=== PATIENT | female | born 1945 | race Caucasian/White ===

== ENCOUNTER → 2017-02-09 | Outpatient (CLI) | payer MEDICARE ==
[~2017-02-09] MED LIST: AMBIEN10 M1 PO; COLACE100 MG PO; COQ10-VIT E 101 EACH PO; CYCLOBENZAPRINE10 MG PO; DAYPRO600 M1 PO; DITROPAN XL5 MG PO; EFFEXOR-XR75 MG PO; IRON325 M1 PO; LASIX20 MG PO; LEVOTHYROXINE100 MC1 PO; LIPITOR80 MG PO; MULTIVITAMINS1 EAC5 PO; NEXIUM40 MG PO; REGLAN10 M1 PO; REXULTI3 MG PO; VISTARIL25 MG PO; VITAMIN B121000 MC1 PO; VITAMIN C1000 M5 PO; VYVANSE70 MG PO; ZYPREXA10 M1 PO
--- NOTE | ~2017-02-09 | ST ---
[place], [place] EXERCISE STRESS TEST REPORT NAME: CONCHITA STODDARD UNIT #: [id number] ROOM: DOCTOR: KLAUS MORRISSEY MD BIRTHDATE: [birth year] DOS: INDICATION: Chest pain. PROCEDURE: The patient was brought to the stress lab. Procedure was explained with risks, benefits and alternatives. Lexiscan was injected. The patient tolerated the procedure well. BLOOD PRESSURE RESPONSE: Resting blood pressure 118/68 with ending blood pressure of 120/60. ELECTROCARDIOGRAM INTERPRETATION: The resting electrogram showing normal sinus rhythm, heart rate of 88. Following the injection, there was no evidence of any significant ST or T-wave changes suggestive of myocardial ischemia. No arrhythmias were noted. SUMMARY: 1. Adequate Lexiscan stress test. 2. Negative Lexiscan stress test for stress induced myocardial ischemia. 3. No arrhythmias were noted. 4. Myoview results will be reported separately. KLAUS MORRISSEY MD CM:STRESS:EXERCISE STRESS TEST REPORT [id number] KLAUS MORRISSEY MD
== END | disposition home or self-care (01) ==
LOC: CARD 03:22
DX: R06.02 Shortness of breath (principal); R07.9 Chest pain, unspecified

== ENCOUNTER → 2017-03-02 | Outpatient (CLI) | payer MEDICARE | END | disposition home or self-care (01) | LOC: CARD 08:45 | DX: R06.02 Shortness of breath (principal); R06.09 Other forms of dyspnea ==

== ENCOUNTER 2019-09-25 22:41 | Emergency (ER) | payer MEDICARE ==
[~2019-09-25] VITALS: Ht 162.5 cm; Wt 68.0 kg
== END 2019-09-26 01:43 | disposition home or self-care (01) ==
LOC: ED 22:41
DX: S01.01XA Laceration without foreign body of scalp, initial encounter (principal); M19.90 Unspecified osteoarthritis, unspecified site; E78.00 Pure hypercholesterolemia, unspecified; K21.9 Gastro-esophageal reflux disease without esophagitis; F41.9 Anxiety disorder, unspecified; F32.9 Major depressive disorder, single episode, unspecified; Z91.040 Latex allergy status; Z91.041 Radiographic dye allergy status; Z88.8 Allergy status to other drugs, medicaments and biological substances; W10.9XXA Fall (on) (from) unspecified stairs and steps, initial encounter; Y93.89 Activity, other specified; Y92.89 Other specified places as the place of occurrence of the external cause; Y99.8 Other external cause status

== ENCOUNTER 2019-09-30 02:31 | Emergency (ER) | payer MEDICARE ==
[~2019-09-30] VITALS: Wt 72.6 kg
[2019-09-30 03:43] LABS: HEMATOCRIT 34.7 % (37.0-47.0); HEMOGLOBIN 11.1 g/dl (12.0-16.0); LYMPH # 1.2 10*3/uL (1.3-4.4); LYMPH % 15.4 % (27.0-41.0); MEAN CELL VOLUME 97.5 fl (81.0-99.0); MEAN CORPUSCULAR HGB 31.2 pg (27.0-31.0); MEAN PLATELET VOLUME 9.8 fl (9.6-12.3); MONO # 0.9 10*3/uL (0.1-1.0); MONO % 10.5 % (3.0-9.0); NEUT % 73.7 % (47.0-73.0); PLATELET COUNT AUTOMATED 203 10*3/uL (130-400); RED BLOOD COUNT 3.56 10*6/uL (4.10-5.10); RED CELL DISTRI WIDTH 12.8 % (0-14.5); WHITE BLOOD COUNT 8.1 10*3/uL (4.8-10.8)
[2019-09-30 03:57] LABS: ACT PARTIAL THROMBO TIME 31.6 SECONDS (20.0-32.1)
[2019-09-30 04:01] LABS: ALBUMIN 2.9 gm/dl (3.1-4.5); ALKALINE PHOSPHATASE 90 U/L (45-117); BUN 16 mg/dl (7-24); CHLORIDE 104 mmol/L (98-107); CKMB 1.1 ng/ml (0.5-3.6); CREATININE 0.84 mg/dL (0.55-1.02); POTASSIUM 3.6 mmol/L (3.5-5.1); SGOT/AST 22 IU/L (3-35); SGPT/ALT 30 U/L (12-78); SODIUM 136 mmol/L (136-145); TOTAL PROTEIN 6.6 gm/dL (6.4-8.2)
[2019-09-30 04:02] LABS: TROPONIN I < 0.015 ng/ml (<0.045)
== END 2019-09-30 05:18 | disposition short-term general hospital (02) ==
LOC: ED 02:31
PROVIDERS: Emergency Medicine
DX: R41.0 Disorientation, unspecified (principal); K44.9 Diaphragmatic hernia without obstruction or gangrene; R09.02 Hypoxemia; E78.00 Pure hypercholesterolemia, unspecified; K21.9 Gastro-esophageal reflux disease without esophagitis; F41.9 Anxiety disorder, unspecified; F32.9 Major depressive disorder, single episode, unspecified; M19.90 Unspecified osteoarthritis, unspecified site; Z88.8 Allergy status to other drugs, medicaments and biological substances; Z91.040 Latex allergy status; Z79.899 Other long term (current) drug therapy

== ENCOUNTER 2019-10-10 18:20 | Inpatient (IN) | payer MEDICARE ==
[2019-10-10] VITALS (9 sets, daily range): BP systolic 101–134; BP diastolic 20–98
[~2019-10-10] VITALS: Ht 165.1 cm; Wt 71.4 kg
--- NOTE | 2019-10-10 18:59 | NUR ---
PT SENT ME TO TALK WITH HER IN THE WAITING ROOM TO GET MORE INFORMATION ABOUT HER HEALTH. UPON TALKING TO HER HE INFORMED ME THAT THE PT FELL 2 WEEKS AGO DOWN THE BASEMENT STAIRS AND HIT HER HEAD ON THE CONCRETE. SHE CAME TO [facility], WAS SEEN AND SENT HOME. 2 DAYS LATER SHE FAINTED AND WAS BROUGHT BACK TO THE ER. WE THEN TRANSFERRED HER TO [facility] WHERE SHE SPENT A COUPLE OF DAYS BEFORE BEING SENT BACK HOME. SHE WAS ACTING FINE UP UNTIL THIS MORNING WHEN SHE STARTED TO BE WEAK AND CONFUSED, HAD SOB, AND DIARRHEA. WHEN SHE STOOD FROM THE TOILET SHE FAINTED AND THE SAID HE TOOK HER TO THE FLOOR. HE STATED THAT SHE HAD A FIXED GAZE AND WAS UNRESPONSIVE FOR ABOUT 30 SECONDS TO A MINUTE. HE THEN CALLED EMS.
[2019-10-10 19:21] LABS: BASO % 0.1 % (0.0-1.0); HEMATOCRIT 24.7 % (37.0-47.0); HEMOGLOBIN 7.5 g/dl (12.0-16.0); LYMPH # 1.4 10*3/uL (1.3-4.4); MEAN CELL VOLUME 99.2 fl (81.0-99.0); MEAN CORPUSCULAR HGB 30.1 pg (27.0-31.0); MEAN CORPUSCULAR HGB CONC 30.4 g/dl (33.0-37.0); MEAN PLATELET VOLUME 9.5 fl (9.6-12.3); MONO # 0.7 10*3/uL (0.1-1.0); MONO % 4.7 % (3.0-9.0); NEUT % 84.7 % (47.0-73.0); PLATELET COUNT AUTOMATED 472 10*3/uL (130-400); RED BLOOD COUNT 2.49 10*6/uL (4.10-5.10); RED CELL DISTRI WIDTH 14.9 % (0-14.5); WHITE BLOOD COUNT 14.2 10*3/uL (4.8-10.8)
[2019-10-10 19:32] LABS: ACT PARTIAL THROMBO TIME 23.6 SECONDS (20.0-32.1)
[2019-10-10 19:38] LABS: ALBUMIN 2.8 gm/dl (3.1-4.5); ALKALINE PHOSPHATASE 116 U/L (45-117); BUN 50 mg/dl (7-24); CHLORIDE 108 mmol/L (98-107); LIPASE 97 U/L (73-393); POTASSIUM 3.7 mmol/L (3.5-5.1); SGOT/AST 17 IU/L (3-35); SGPT/ALT 14 U/L (12-78); SODIUM 140 mmol/L (136-145); TOTAL PROTEIN 5.9 gm/dL (6.4-8.2)
[2019-10-10 19:40] LABS: TROPONIN I < 0.015 ng/ml (<0.045)
[2019-10-10 20:15] LABS: BACTERIA 1+; BILIRUBIN NEGATIVE (NEGATIVE); BLOOD NEGATIVE (NEGATIVE); CLARITY CLEAR (CLEAR); COLOR YELLOW (YELLOW); EPITHELIAL CELLS 16-20; GLUCOSE NEGATIVE (NEGATIVE); KETONE NEGATIVE (NEGATIVE); LEUKO ESTERASE 1+ (NEGATIVE); NITRITE NEGATIVE (NEGATIVE); SPECIFIC GRAVITY 1.015 (1.005-1.030); UROBILINOGEN 0.2 E.U./dl (0.2-1.0); WBC 16-20 wbc/hpf (0-5)
[2019-10-11] VITALS (10 sets, daily range): BP systolic 113–141; BP diastolic 47–90
--- NOTE | 2019-10-11 00:30 | NUR ---
A 73, admitted to , under the services of LYNETTE Conn DO with a diagnosis of NEAR SYNCOPAL EPISODE, CONFUSION. Chief complaint is SYNCOPE. Patient arrived via stretcher from ER. Monitor applied. Initial assessment completed. Vital signs taken and recorded. LYNETTE CONN DO notified of admission to the unit. Orders received. See assessment for past medical history, medications and allergies. Patient and/or family oriented to unit. [facility] 4TH FLOOR visitation policy reviewed. Clothing/patient valuable form completed. WILL GAYTAN
--- NOTE | 2019-10-11 00:45 | NUR ---
NOTIFIED DR. DANGELO OF PATIENTS HIGH HEART RATE, 120S AT REST, 140S-150S WITH EXERTION. PATIENT STATES SHE CAN FEEL HER HEART RACING AT TIMES. NO NEW ORDERS RECEIVED. WILL CONTINUE TO MONITOR.
--- NOTE | 2019-10-11 01:00 | NUR ---
DR. SAVAGE MADE AWARE THAT WE CAN NOT RECONCILE MEDS BECAUSE PATIENT IS UNSURE OF HER HOME MEDICATIONS.
--- NOTE | 2019-10-11 01:16 | NUR ---
PATIENTS FIRST UNIT COMPLETE. CBC ORDERED PER POLICY. WILL CONTINUE TO MONTIOR.
[2019-10-11 01:35] LABS: BASO % 0.1 % (0.0-1.0); HEMATOCRIT 25.3 % (37.0-47.0); HEMOGLOBIN 7.9 g/dl (12.0-16.0); LYMPH # 2.1 10*3/uL (1.3-4.4); LYMPH % 15.2 % (27.0-41.0); MEAN CELL VOLUME 99.6 fl (81.0-99.0); MEAN CORPUSCULAR HGB 31.1 pg (27.0-31.0); MEAN CORPUSCULAR HGB CONC 31.2 g/dl (33.0-37.0); MEAN PLATELET VOLUME 9.3 fl (9.6-12.3); MONO # 0.8 10*3/uL (0.1-1.0); MONO % 5.7 % (3.0-9.0); NEUT # 10.8 10*3/uL (2.3-7.9); NEUT % 78.5 % (47.0-73.0); PLATELET COUNT AUTOMATED 374 10*3/uL (130-400); RED BLOOD COUNT 2.54 10*6/uL (4.10-5.10); RED CELL DISTRI WIDTH 14.9 % (0-14.5); WHITE BLOOD COUNT 13.7 10*3/uL (4.8-10.8)
--- NOTE | 2019-10-11 01:45 | NUR ---
NOTIFIED DR. SAVAGE OF PATIENTS NEW HGB, 7.9 AFTER ONE UNIT. SEE NEW ORDERS.
--- NOTE | 2019-10-11 02:25 | NUR ---
PATIENT REQUESTING TYLENOL FOR COMPLAINTS OF A HEADACHE. RATES THE PAIN 09/08. WILL CONTINUE TO MONITOR.
[2019-10-11 06:11] LABS: BASO % 0.1 % (0.0-1.0); HEMATOCRIT 30.7 % (37.0-47.0); HEMOGLOBIN 9.7 g/dl (12.0-16.0); LYMPH # 2.8 10*3/uL (1.3-4.4); LYMPH % 20.7 % (27.0-41.0); MEAN CORPUSCULAR HGB 30.5 pg (27.0-31.0); MEAN CORPUSCULAR HGB CONC 31.6 g/dl (33.0-37.0); MEAN PLATELET VOLUME 9.5 fl (9.6-12.3); MONO # 0.7 10*3/uL (0.1-1.0); MONO % 5.2 % (3.0-9.0); NEUT # 9.8 10*3/uL (2.3-7.9); NEUT % 73.4 % (47.0-73.0); PLATELET COUNT AUTOMATED 395 10*3/uL (130-400); RED BLOOD COUNT 3.18 10*6/uL (4.10-5.10); RED CELL DISTRI WIDTH 14.6 % (0-14.5); WHITE BLOOD COUNT 13.4 10*3/uL (4.8-10.8)
[2019-10-11 06:15] LABS: MEAN CELL VOLUME 96.5 fl (81.0-99.0)
[2019-10-11 06:32] LABS: BUN 41 mg/dl (7-24); CHLORIDE 110 mmol/L (98-107); CHOLESTEROL 127 mg/dL (<200); CREATININE 0.59 mg/dL (0.55-1.02); PHOSPHOROUS 2.5 mg/dL (2.5-4.9); POTASSIUM 3.2 mmol/L (3.5-5.1); SODIUM 141 mmol/L (136-145); TRIGLYCERIDES 203 mg/dl (<150); VLDL CHOLESTEROL 41 mg/dL (6-40)
[2019-10-11 06:40] LABS: HDL CHOLESTEROL 28 mg/dl (40-60); LDL CHOLESTEROL 58 mg/dL (9-159); THYROID STIM HORMONE (HS) 0.741 uIU/ml (0.358-4.75)
[2019-10-11 07:08] LABS: VITAMIN D, 25-HYDROXY 47.6 ng/mL (30-100)
--- NOTE | 2019-10-11 09:14 | NUR ---
case management called patient's regarding discharge needs. left voicemail for to contact case management with any home needs
--- NOTE | 2019-10-11 09:44 | NUR ---
ZOFRAN GIVEN FOR C/O NAUSEA. WILL MONITOR.
--- NOTE | 2019-10-11 10:45 | NUR ---
KIM ALBERTS PER PT.
[2019-10-12] VITALS: BP 132/51
--- NOTE | 2019-10-12 03:46 | NUR ---
PATIENT SLEEPING, NO SIGNS OF DISTRESS. RESPIRATIONS EASY,NON LABORED. BED IN LOWEST POSITION. CALL LIGHT WITHIN REACH. WILL CONTINUE TO MONITOR.
[2019-10-12 05:54] LABS: BASO % 0.1 % (0.0-1.0); HEMOGLOBIN 8.3 g/dl (12.0-16.0); LYMPH # 2.4 10*3/uL (1.3-4.4); LYMPH % 25.2 % (27.0-41.0); MEAN CELL VOLUME 99.3 fl (81.0-99.0); MEAN CORPUSCULAR HGB 30.5 pg (27.0-31.0); MEAN CORPUSCULAR HGB CONC 30.7 g/dl (33.0-37.0); MEAN PLATELET VOLUME 9.2 fl (9.6-12.3); MONO # 0.6 10*3/uL (0.1-1.0); MONO % 5.9 % (3.0-9.0); NEUT # 6.4 10*3/uL (2.3-7.9); NEUT % 68.1 % (47.0-73.0); PLATELET COUNT AUTOMATED 344 10*3/uL (130-400); RED BLOOD COUNT 2.72 10*6/uL (4.10-5.10); RED CELL DISTRI WIDTH 15.8 % (0-14.5); WHITE BLOOD COUNT 9.4 10*3/uL (4.8-10.8)
[2019-10-12 06:24] LABS: ACT PARTIAL THROMBO TIME 23.3 SECONDS (20.0-32.1); CHLORIDE 113 mmol/L (98-107); CREATININE 0.55 mg/dL (0.55-1.02); POTASSIUM 3.6 mmol/L (3.5-5.1); SODIUM 143 mmol/L (136-145)
[2019-10-12 06:36] LABS: BUN 14 mg/dl (7-24)
--- NOTE | 2019-10-12 07:35 | NUR ---
DR GAINES IN TO SEE PATIENT
[2019-10-12 08:31] VITALS: BP 120/58
[2019-10-12] MEDS ORDERED: CYMBALTA30 MG PO (09:33)
[2019-10-12] MEDS ORDERED: PEPCID20 MG PO (09:37)
[2019-10-12] MEDS ORDERED: LIPITOR80 MG PO (09:38)
[2019-10-12] MEDS ORDERED: ATIVAN0.5 MG PO (09:38)
[2019-10-12] MEDS ORDERED: Synthroid,Lev100 MCG PO (09:39)
[2019-10-12] MEDS ORDERED: ZYPREXA10 M1 PO (09:40)
--- NOTE | 2019-10-12 09:45 | NUR ---
PT CALLED ON THE PHONE AND WE WENT OVER HOME MEDICATIONS AND UPDATED THE COMPUTER
--- NOTE | 2019-10-12 09:51 | NUR ---
CALLED DR MORRIS TO LET HIM KNOW HOME MEDICATIONS ARE UP TO DATE
--- NOTE | 2019-10-12 09:52 | NUR ---
PT STATES SHE IS HAVING PAIN ON THE RIGHT SIDE OF HER RIBS RATING IT A 4/10. PRN NORCO PO IS GIVEN AT THIS TIME. SHE STATES ONCE THE PILL HAS KICKED IN SHE WANTS TO WALK IN THE [place]
--- NOTE | 2019-10-12 10:51 | NUR ---
CALLED DR MORRIS TO INFORM HIM THAT I WALKED WITH THE PATIENT IN THE HALLWAY AND THAT SHE DID VERY WELL, NO COMPLAINTS OF DIZZINESS OR OTHER COMPLAINTS AT THAT TIME
[2019-10-12 12:00] VITALS: BP 122/74
[2019-10-12 16:00] VITALS: BP 120/72; BP 150/50
--- NOTE | 2019-10-12 18:07 | NUR ---
PRN TYLENOL PO GIVEN FOR HEADACHE. WILL CONTINUE TO MONITOR FOR EFFECTIVENESS
[2019-10-12 20:00] VITALS: BP 120/43
--- NOTE | 2019-10-12 23:30 | NUR ---
24 HOUR CHART CHECK COMPLETE
[2019-10-13] VITALS: BP 119/39
[2019-10-13 06:21] LABS: EOS % 0.1 % (1.0-4.0); HEMATOCRIT 25.8 % (37.0-47.0); HEMOGLOBIN 7.9 g/dl (12.0-16.0); LYMPH # 2.2 10*3/uL (1.3-4.4); LYMPH % 30.9 % (27.0-41.0); MEAN CELL VOLUME 101.6 fl (81.0-99.0); MEAN CORPUSCULAR HGB 31.1 pg (27.0-31.0); MEAN CORPUSCULAR HGB CONC 30.6 g/dl (33.0-37.0); MEAN PLATELET VOLUME 9.4 fl (9.6-12.3); MONO # 0.5 10*3/uL (0.1-1.0); MONO % 7.4 % (3.0-9.0); NEUT # 4.3 10*3/uL (2.3-7.9); NEUT % 61.2 % (47.0-73.0); PLATELET COUNT AUTOMATED 322 10*3/uL (130-400); RED BLOOD COUNT 2.54 10*6/uL (4.10-5.10); RED CELL DISTRI WIDTH 16.2 % (0-14.5); WHITE BLOOD COUNT 7.1 10*3/uL (4.8-10.8)
--- NOTE | 2019-10-13 07:44 | NUR ---
IN PT ROOM AT THIS TO COMPLETE ASSESSMENT. AT THIS TIME PT DENIES BEING DIZZY AT THIS TIME. SHE DOES STATE SHE IS HAVING PAIN IN HER RIBS, PRN NORCO PO IS GIVEN AT THIS TIME. SHE IS AWAITNG THE DOCTOR TO COME IN TO SEE IF SHE IS ABLE TO GO HOME TODAY OR NOT. CALL LIGHT WITHIN REACH, WILL CONTINUE TO MONITOR.
[2019-10-13 08:00] VITALS: BP 122/48
--- NOTE | 2019-10-13 08:12 | NUR ---
PHYSICAL THERAPY Screen received pt is admitted from home with GI bleed, sycope and hx of recent falls. Pt would benefit from PT consult to assess ambulation and overall safety, thank you. Halina Brothers PT
--- NOTE | 2019-10-13 08:20 | NUR ---
Nursing screen received and chart reviewed. Patient admitted from home for syncope, GI bleed. If patient has a decline in ADLs, transfers, or mobility, please send OT orders. Thank you. Tamera Crowder, OTR/L
--- NOTE | 2019-10-13 09:23 | NUR ---
Per patient progress note patient was agreeable to PT/OT. Will need PT/OT orders. FORMING DEPARTMENT SUPERVISOR notified RN Hospitalist Coordinator Fiorella. -MADHU Mondragon
--- NOTE | 2019-10-13 09:29 | NUR ---
DR GAINES IN TO SEE PATIENT
--- NOTE | 2019-10-13 10:56 | NUR ---
Senior Compliance Analyst in to talk to patient. Patient states lives at HOME with . There are 13 steps in the home. Physician: ALENA [facility]: [facility] Home health services: NONE Patient's level of ADLs: INDEPENDENT Patient has working utilities: YES DME: [facility] THROUGH [facility] Follow-up physician's appointment after d/c: WILL BE MADE BY HOSPITALIST NURSE DIRECTOR ON DISCHARGE Does patient want to access PORTAL?: NO Discharge plan PT LIVES AT HOME WITH HER AND IS INDEPENDENT IN HER CARE. SHE CURRENTLY HAS HOME O2 AND DENIESS SHE WILL HAVE ANY OTHER NEEDS ON DISCHARGE. PLAN IS TO RETURN HOME WHEN MEDICALLY STABLE. WILL CONTINUE TO FOLLOW. STATES HER WILL TAKE HER HOME. . JULIA KENNEDY
--- NOTE | 2019-10-13 11:04 | NUR ---
Occupational Therapy evaluation completed on four with full evaluation to follow. Recommend occupational therapy per plan of care and home with HH SN, OT, and PT upon discharge. Thank you for this referral. Tamera Crowder OTR/L
--- NOTE | 2019-10-13 11:05 | NUR ---
PHYSICAL THERAPY Physical Therapy evaluation completed on 4E with full evaluation to follow. Low complexity PT evaluation per chart review and evaluation, [id number]. Recommend physical therapy per plan of care and Home Health Services upon discharge. Thank you for this referral. Radha Eason,PT,DPT
[2019-10-13 12:00] VITALS: BP 126/55
--- NOTE | 2019-10-13 14:39 | NUR ---
WENT OVER DISCHARGE PLANS, PT IS AWARE THAT SHE IS BEING TRANSFERRED TO [facility] AT [facility] BY [facility]. SHE HAS NO QUESTIONS AT THIS TIME.
--- NOTE | 2019-10-13 15:25 | NUR ---
IN PT ROOM AND SHE SIGNED ALL THE PAPERS THAT ARE NEEDED. ALL OF HER THINGS ARE GATHERED JUST WAITING FOR THE AMBULANCE
--- NOTE | 2019-10-13 15:29 | NUR ---
CALLED [facility] NURSE CHRISTOPHE TO GIVE REPORT
--- NOTE | 2019-10-13 15:58 | NUR ---
BARRETT HERE LOADING UP PATIENT TO TRANSFER HER OUT
== END 2019-10-13 15:59 | disposition short-term general hospital (02) | DRG 377 ==
LOC: ED 18:20 → EDHOLD 22:27 → 4E 22:27
PROVIDERS: Emergency Medicine; Hospitalist; Internal Medicine; ADMIT Internal Medicine
PROC: 30233N1 Transfusion of Nonautologous Red Blood Cells into Peripheral Vein, Percutaneous Approach (ICD-10-PCS; principal; 2019-10-10)
DX: K92.2 Gastrointestinal hemorrhage, unspecified (principal); E43 Unspecified severe protein-calorie malnutrition; R65.10 Systemic inflammatory response syndrome (SIRS) of non-infectious origin without acute organ dysfunction; D62 Acute posthemorrhagic anemia; R19.5 Other fecal abnormalities; E87.8 Other disorders of electrolyte and fluid balance, not elsewhere classified; D47.3 Essential (hemorrhagic) thrombocythemia; M15.9 Polyosteoarthritis, unspecified; E86.0 Dehydration; E03.9 Hypothyroidism, unspecified; Z96.653 Presence of artificial knee joint, bilateral; Z88.8 Allergy status to other drugs, medicaments and biological substances; Z91.040 Latex allergy status; Z79.899 Other long term (current) drug therapy; Z90.710 Acquired absence of both cervix and uterus; Z80.42 Family history of malignant neoplasm of prostate; Z80.3 Family history of malignant neoplasm of breast; Z68.26 Body mass index [BMI] 26.0-26.9, adult

== ENCOUNTER → 2020-01-15 | Outpatient (CLI) | payer MEDICARE ==
[~2020-01-15] MED LIST changes: +ATIVAN0.5 MG PO; +CYMBALTA30 MG PO; +PEPCID20 MG PO; +Synthroid,Lev100 MCG PO
[2020-01-15 10:03] LABS: HEMATOCRIT 38.6 % (37.0-47.0); MEAN CELL VOLUME 81.4 fl (81.0-99.0); MEAN CORPUSCULAR HGB 22.8 pg (27.0-31.0); MEAN PLATELET VOLUME 9.9 fl (9.6-12.3); MONO # 0.6 10*3/uL (0.1-1.0); NEUT # 3.5 10*3/uL (2.3-7.9); NEUT % 56.8 % (47.0-73.0); PLATELET COUNT AUTOMATED 338 10*3/uL (130-400); RED BLOOD COUNT 4.74 10*6/uL (4.10-5.10); RED CELL DISTRI WIDTH 18.5 % (0-14.5); WHITE BLOOD COUNT 6.1 10*3/uL (4.8-10.8)
[2020-01-15 10:32] LABS: ALBUMIN 3.4 gm/dl (3.1-4.5); ALKALINE PHOSPHATASE 113 U/L (45-117); BUN 14 mg/dl (7-24); CHLORIDE 111 mmol/L (98-107); SGOT/AST 16 IU/L (3-35); SGPT/ALT 17 U/L (12-78); SODIUM 140 mmol/L (136-145); TOTAL PROTEIN 7.3 gm/dL (6.4-8.2)
== END | disposition home or self-care (01) ==
LOC: LAB 08:56
PROVIDERS: Colon & Rectal Surgery
DX: Z01.818 Encounter for other preprocedural examination (principal)

== ENCOUNTER 2020-04-02 12:56 | Emergency (ER) | payer MEDICARE ==
[~2020-04-02] VITALS: Ht 157.4 cm; Wt 68.0 kg
[2020-04-02 13:51] LABS: EOS % 0.1 % (1.0-4.0); HEMATOCRIT 42.7 % (37.0-47.0); LYMPH # 1.7 10*3/uL (1.3-4.4); LYMPH % 22.4 % (27.0-41.0); MEAN CELL VOLUME 84.1 fl (81.0-99.0); MEAN CORPUSCULAR HGB 24.4 pg (27.0-31.0); MEAN PLATELET VOLUME 9.1 fl (9.6-12.3); MONO # 0.7 10*3/uL (0.1-1.0); MONO % 8.9 % (3.0-9.0); NEUT # 5.3 10*3/uL (2.3-7.9); NEUT % 68.5 % (47.0-73.0); PLATELET COUNT AUTOMATED 255 10*3/uL (130-400); RED BLOOD COUNT 5.08 10*6/uL (4.10-5.10); RED CELL DISTRI WIDTH 21.4 % (0-14.5); WHITE BLOOD COUNT 7.7 10*3/uL (4.8-10.8)
[2020-04-02 13:53] LABS: BILIRUBIN Negative (Negative); BLOOD Negative (Negative); CLARITY Clear (Clear); COLOR Dark Yellow (Yellow); GLUCOSE Negative (Negative); KETONE Trace (Negative); LEUKO ESTERASE Trace (Negative); NITRITE Negative (Negative); PH 7.5 (4.5-8.0); SPECIFIC GRAVITY >= 1.030 (1.001-1.030)
[2020-04-02 14:03] LABS: BACTERIA 2+; MUCOUS TRACE; RBC 0-2 rbc/hpf (0-2)
[2020-04-02 14:07] LABS: ALBUMIN 3.2 gm/dl (3.1-4.5); ALKALINE PHOSPHATASE 102 U/L (45-117); BUN 17 mg/dl (7-24); CHLORIDE 109 mmol/L (98-107); CREATININE 0.67 mg/dL (0.55-1.02); LIPASE 61 U/L (73-393); POTASSIUM 4.1 mmol/L (3.5-5.1); SGOT/AST 9 IU/L (3-35); SGPT/ALT 16 U/L (12-78); SODIUM 141 mmol/L (136-145); TOTAL PROTEIN 6.6 gm/dL (6.4-8.2)
== END 2020-04-02 17:18 | disposition home or self-care (01) ==
LOC: ED 12:56
PROVIDERS: Physician Assistant
DX: R11.10 Vomiting, unspecified (principal); Z91.041 Radiographic dye allergy status; Z91.040 Latex allergy status; Z88.8 Allergy status to other drugs, medicaments and biological substances; Z79.899 Other long term (current) drug therapy

== ENCOUNTER 2020-12-07 12:36 | Emergency (ER) | payer MEDICARE ==
[~2020-12-07] VITALS: Ht 154.9 cm; Wt 72.6 kg
[~2020-12-07 12:36] MED LIST changes: -XARELTO1 EACH PO; -XARELTO20 M1 PO
[2020-12-07 13:38] LABS: BASO % 0.1 % (0.0-1.0); EOS % 0.1 % (1.0-4.0); HEMATOCRIT 42.6 % (37.0-47.0); LYMPH # 2.2 10*3/uL (1.3-4.4); LYMPH % 31.6 % (27.0-41.0); MEAN CELL VOLUME 96.8 fl (81.0-99.0); MEAN CORPUSCULAR HGB 29.5 pg (27.0-31.0); MEAN CORPUSCULAR HGB CONC 30.5 g/dl (33.0-37.0); MEAN PLATELET VOLUME 8.8 fl (9.6-12.3); MONO # 0.6 10*3/uL (0.1-1.0); MONO % 8.4 % (3.0-9.0); NEUT % 58.9 % (47.0-73.0); PLATELET COUNT AUTOMATED 329 10*3/uL (130-400); RED CELL DISTRI WIDTH 13.5 % (0-14.5); WHITE BLOOD COUNT 6.8 10*3/uL (4.8-10.8)
[2020-12-07 13:49] LABS: ACT PARTIAL THROMBO TIME 33.9 SECONDS (20.0-32.1)
[2020-12-07 13:54] LABS: ALBUMIN 2.9 gm/dl (3.1-4.5); ALKALINE PHOSPHATASE 125 U/L (45-117); BUN 20 mg/dl (7-24); CHLORIDE 107 mmol/L (98-107); CREATININE 1.06 mg/dL (0.55-1.02); POTASSIUM 4.1 mmol/L (3.5-5.1); SGOT/AST 13 IU/L (3-35); SGPT/ALT 16 U/L (12-78); SODIUM 135 mmol/L (136-145); TOTAL PROTEIN 7.3 gm/dL (6.4-8.2)
[2020-12-07] MEDS ORDERED: XARELTO1 EACH PO (15:44)
[2020-12-07] MEDS ORDERED: XARELTO20 M1 PO (15:45)
== END 2020-12-07 16:06 | disposition home or self-care (01) ==
LOC: ED 12:36
PROVIDERS: Emergency Medicine
DX: I82.402 Acute embolism and thrombosis of unspecified deep veins of left lower extremity (principal); Z91.040 Latex allergy status; Z79.899 Other long term (current) drug therapy; Z90.711 Acquired absence of uterus with remaining cervical stump; Z98.890 Other specified postprocedural states

== ENCOUNTER → 2020-12-07 | Outpatient (CLI) | payer MEDICARE ==
[~2020-12-07] MED LIST changes: +XARELTO1 EACH PO; +XARELTO20 M1 PO
== END | disposition home or self-care (01) ==
LOC: US 09:45
PROVIDERS: ATTEND Podiatrist
DX: I82.432 Acute embolism and thrombosis of left popliteal vein (principal); I82.492 Acute embolism and thrombosis of other specified deep vein of left lower extremity

== ENCOUNTER → 2021-07-05 | Outpatient (CLI) | payer MEDICARE ==
[~2021-07-05] MED LIST changes: +XARELTO1 EACH PO; +XARELTO20 M1 PO
== END ==
LOC: COVID19 16:14
PROVIDERS: ATTEND Internal Medicine
DX: U07.1 COVID-19 (principal)

== ENCOUNTER 2021-09-19 09:37 | Inpatient (IN) | payer MEDICARE ==
[~2021-09-19] VITALS: Ht 157.4 cm; Wt 75.3 kg
[2021-09-19 09:55] VITALS: BP 139/59
[2021-09-19 10:19] LABS: BILIRUBIN Negative (Negative); BLOOD Negative (Negative); CLARITY Cloudy (Clear); COLOR Dark Yellow (Yellow); GLUCOSE Negative (Negative); KETONE Trace (Negative); LEUKO ESTERASE 2+ (Negative); NITRITE Negative (Negative); PH 5.5 (4.5-8.0); SPECIFIC GRAVITY 1.025 (1.001-1.030)
[2021-09-19 10:42] LABS: EOS % 0.3 % (1.0-4.0); LYMPH # 1.6 10*3/uL (1.3-4.4); LYMPH % 24.6 % (27.0-41.0); MEAN CELL VOLUME 96.2 fl (81.0-99.0); MEAN CORPUSCULAR HGB 29.7 pg (27.0-31.0); MEAN CORPUSCULAR HGB CONC 30.9 g/dl (33.0-37.0); MONO # 0.4 10*3/uL (0.1-1.0); MONO % 5.9 % (3.0-9.0); NEUT # 4.4 10*3/uL (2.3-7.9); NEUT % 68.7 % (47.0-73.0); PLATELET COUNT AUTOMATED 226 10*3/uL (130-400); RED BLOOD COUNT 4.68 10*6/uL (4.10-5.10); RED CELL DISTRI WIDTH 14.9 % (0-14.5); WHITE BLOOD COUNT 6.4 10*3/uL (4.8-10.8)
[2021-09-19 10:50] LABS: ACT PARTIAL THROMBO TIME 33.6 SECONDS (20.0-32.1)
[2021-09-19 10:58] LABS: ALKALINE PHOSPHATASE 116 U/L (45-117); BUN 14 mg/dl (7-24); CHLORIDE 106 mmol/L (98-107); CREATININE 0.79 mg/dL (0.55-1.02); SGOT/AST 15 IU/L (3-35); SGPT/ALT 18 U/L (12-78); SODIUM 139 mmol/L (136-145); TOTAL PROTEIN 7.2 gm/dL (6.4-8.2)
[2021-09-19 11:03] LABS: BACTERIA 2+; CALCIUM OXALATE CRYSTALS 1+; EPITHELIAL CELLS 21-30; MUCOUS 1+
[2021-09-19] MEDS ORDERED: DONEPEZIL HYDROC5 MG PO (13:35)
[2021-09-19] MEDS ORDERED: AMOXICILLIN500 M2 PO (13:35)
[2021-09-19] MEDS ORDERED: DEXAMETHASONE/TO5 ML OPH (13:36)
[2021-09-19] MEDS ORDERED: AMITRIPTYLINE100 M1 PO (13:36)
[2021-09-19] MEDS ORDERED: HYDROCODONE-AC1 EAC1 PO (13:37)
[2021-09-19 13:58] VITALS: BP 161/79
[2021-09-19 14:25] VITALS: BP 162/84
[2021-09-19 16:00] VITALS: BP 135/85
[2021-09-19 18:47] VITALS: BP 130/90
[2021-09-19 20:00] VITALS: BP 142/79
[2021-09-20] VITALS: BP 144/63
[2021-09-20 04:37] LABS: BILIRUBIN Negative (Negative); BLOOD Negative (Negative); CLARITY Clear (Clear); COLOR Yellow (Yellow); GLUCOSE Negative (Negative); KETONE Negative (Negative); LEUKO ESTERASE Negative (Negative); NITRITE Negative (Negative)
[2021-09-20 05:09] LABS: RBC 0-2 rbc/hpf (0-2)
[2021-09-20 05:10] LABS: BACTERIA TRACE
[2021-09-20 05:53] LABS: LYMPH # 0.6 10*3/uL (1.3-4.4); LYMPH % 13.2 % (27.0-41.0); MEAN CELL VOLUME 94.2 fl (81.0-99.0); MEAN CORPUSCULAR HGB 29.6 pg (27.0-31.0); MEAN CORPUSCULAR HGB CONC 31.4 g/dl (33.0-37.0); MEAN PLATELET VOLUME 9.6 fl (9.6-12.3); MONO % 0.7 % (3.0-9.0); NEUT # 3.8 10*3/uL (2.3-7.9); NEUT % 85.9 % (47.0-73.0); PLATELET COUNT AUTOMATED 264 10*3/uL (130-400); RED BLOOD COUNT 4.67 10*6/uL (4.10-5.10); RED CELL DISTRI WIDTH 14.6 % (0-14.5); WHITE BLOOD COUNT 4.4 10*3/uL (4.8-10.8)
[2021-09-20 06:08] LABS: BUN 13 mg/dl (7-24); CHLORIDE 107 mmol/L (98-107); POTASSIUM 4.2 mmol/L (3.5-5.1); SODIUM 138 mmol/L (136-145)
[2021-09-20 06:22] LABS: CHOLESTEROL 138 mg/dL (<200); CREATININE 0.75 mg/dL (0.55-1.02); FREE T4 1.05 ng/dl (0.76-1.46); LDL CHOLESTEROL 75 mg/dL (9-159); THYROID STIM HORMONE (HS) 0.856 uIU/ml (0.358-4.75); TRIGLYCERIDES 50 mg/dl (<150)
[2021-09-20 08:00] VITALS: BP 141/65
[2021-09-20 08:38] LABS: VITAMIN D, 25-HYDROXY 57.4 ng/mL (30-100)
[2021-09-20] MEDS ORDERED: CLOPIDOGREL75 MG PO (11:08)
== END 2021-09-20 13:05 | disposition home or self-care (01) | DRG 69 ==
LOC: ED 09:37 → 4E 13:39 → EDHOLD 13:39 → 4E 14:06
PROVIDERS: Emergency Medicine; Registered Nurse; ADMIT Internal Medicine; ATTEND Internal Medicine
DX: G45.9 Transient cerebral ischemic attack, unspecified (principal); F03.90 Unspecified dementia, unspecified severity, without behavioral disturbance, psychotic disturbance, mood disturbance, and anxiety; F32.A Depression, unspecified; E03.9 Hypothyroidism, unspecified; D50.9 Iron deficiency anemia, unspecified; R29.6 Repeated falls; Z80.42 Family history of malignant neoplasm of prostate; Z80.3 Family history of malignant neoplasm of breast; Z91.041 Radiographic dye allergy status; Z91.040 Latex allergy status; Z88.8 Allergy status to other drugs, medicaments and biological substances; Z79.899 Other long term (current) drug therapy; Z79.1 Long term (current) use of non-steroidal anti-inflammatories (NSAID); Z90.710 Acquired absence of both cervix and uterus; Z90.49 Acquired absence of other specified parts of digestive tract

== ENCOUNTER → 2021-11-19 | Outpatient (CLI) | payer MEDICARE ==
[~2021-11-19] MED LIST changes: +AMITRIPTYLINE100 M1 PO; +AMOXICILLIN500 M2 PO; +CLOPIDOGREL75 MG PO; +DEXAMETHASONE/TO5 ML OPH; +DONEPEZIL HYDROC5 MG PO; +HYDROCODONE-AC1 EAC1 PO
== END | disposition home or self-care (01) ==
LOC: RAD 10:30
PROVIDERS: ATTEND Nurse Practitioner Family
DX: M19.071 Primary osteoarthritis, right ankle and foot (principal); G45.9 Transient cerebral ischemic attack, unspecified; R23.9 Unspecified skin changes

== ENCOUNTER → 2021-12-27 | Outpatient (CLI) | payer MEDICARE ==
[2021-12-27 07:45] LABS: CREATININE 0.91 mg/dL (0.55-1.02)
== END | disposition home or self-care (01) ==
LOC: CT 12-16 15:00 → LAB 07:03 → CT 07:03
PROVIDERS: ATTEND Surgery
DX: K44.9 Diaphragmatic hernia without obstruction or gangrene (principal)

== ENCOUNTER 2022-01-24 12:13 | Inpatient (IN) | payer MEDICARE ==
[~2022-01-24] VITALS: Ht 152.4 cm; Wt 74.1 kg
[2022-01-24 12:21] VITALS: BP 115/63
[2022-01-24 12:54] LABS: BASO % 0.1 % (0.0-1.0); EOS % 0.1 % (1.0-4.0); HEMATOCRIT 43.9 % (37.0-47.0); LYMPH # 1.7 10*3/uL (1.3-4.4); LYMPH % 19.2 % (27.0-41.0); MEAN CELL VOLUME 98.9 fl (81.0-99.0); MEAN CORPUSCULAR HGB 30.4 pg (27.0-31.0); MEAN CORPUSCULAR HGB CONC 30.8 g/dl (33.0-37.0); MEAN PLATELET VOLUME 9.1 fl (9.6-12.3); MONO # 0.7 10*3/uL (0.1-1.0); MONO % 8.2 % (3.0-9.0); NEUT # 6.4 10*3/uL (2.3-7.9); NEUT % 72.1 % (47.0-73.0); PLATELET COUNT AUTOMATED 223 10*3/uL (130-400); RED BLOOD COUNT 4.44 10*6/uL (4.10-5.10); RED CELL DISTRI WIDTH 14.5 % (0-14.5); WHITE BLOOD COUNT 8.9 10*3/uL (4.8-10.8)
[2022-01-24 13:04] LABS: ACT PARTIAL THROMBO TIME 29.9 SECONDS (20.0-32.1)
[2022-01-24 13:13] LABS: ALKALINE PHOSPHATASE 97 U/L (45-117); BUN 21 mg/dl (7-24); CHLORIDE 107 mmol/L (98-107); CREATININE 0.85 mg/dL (0.55-1.02); LIPASE 90 U/L (73-393); POTASSIUM 4.5 mmol/L (3.5-5.1); SGOT/AST 14 IU/L (3-35); SGPT/ALT 17 U/L (12-78); SODIUM 139 mmol/L (136-145); TOTAL PROTEIN 6.7 gm/dL (6.4-8.2)
[2022-01-24 15:19] LABS: BILIRUBIN Negative (Negative); BLOOD Negative (Negative); CLARITY Cloudy (Clear); COLOR Yellow (Yellow); GLUCOSE Negative (Negative); KETONE Negative (Negative); LEUKO ESTERASE 2+ (Negative); NITRITE Negative (Negative); PH 6.5 (4.5-8.0); UROBILINOGEN 0.2 E.U./dl (0.0-1.0)
[2022-01-24 15:57] LABS: BACTERIA 2+; EPITHELIAL CELLS TNTC
[2022-01-24 18:00] VITALS: BP 133/66
[2022-01-24 20:00] VITALS: BP 130/65
[2022-01-25] VITALS: BP 114/45
[2022-01-25 06:14] LABS: EOS % 0.2 % (1.0-4.0); HEMATOCRIT 42.9 % (37.0-47.0); LYMPH # 1.9 10*3/uL (1.3-4.4); LYMPH % 33.8 % (27.0-41.0); MEAN CELL VOLUME 100.2 fl (81.0-99.0); MEAN CORPUSCULAR HGB 30.6 pg (27.0-31.0); MEAN CORPUSCULAR HGB CONC 30.5 g/dl (33.0-37.0); MEAN PLATELET VOLUME 9.2 fl (9.6-12.3); MONO # 0.4 10*3/uL (0.1-1.0); MONO % 7.6 % (3.0-9.0); NEUT # 3.2 10*3/uL (2.3-7.9); PLATELET COUNT AUTOMATED 182 10*3/uL (130-400); RED BLOOD COUNT 4.28 10*6/uL (4.10-5.10); RED CELL DISTRI WIDTH 14.4 % (0-14.5); WHITE BLOOD COUNT 5.5 10*3/uL (4.8-10.8)
[2022-01-25 06:34] LABS: ALKALINE PHOSPHATASE 83 U/L (45-117); BUN 12 mg/dl (7-24); CHLORIDE 112 mmol/L (98-107); CHOLESTEROL 115 mg/dL (<200); CREATININE 0.57 mg/dL (0.55-1.02); LDL CHOLESTEROL 38 mg/dL (9-159); POTASSIUM 3.9 mmol/L (3.5-5.1); SGOT/AST 14 IU/L (3-35); SGPT/ALT 16 U/L (12-78); SODIUM 144 mmol/L (136-145); TOTAL PROTEIN 5.9 gm/dL (6.4-8.2); TRIGLYCERIDES 131 mg/dl (<150)
[2022-01-25 08:00] VITALS: BP 136/58
[2022-01-25 12:00] VITALS: BP 143/70
[2022-01-25 16:00] VITALS: BP 131/54
[2022-01-25 20:00] VITALS: BP 115/62
[2022-01-26] VITALS (7 sets, daily range): BP systolic 103–138; BP diastolic 45–71
[2022-01-26 06:22] LABS: BUN 12 mg/dl (7-24); CHLORIDE 111 mmol/L (98-107); CREATININE 0.61 mg/dL (0.55-1.02); POTASSIUM 4.1 mmol/L (3.5-5.1); SODIUM 142 mmol/L (136-145)
[2022-01-26 06:24] LABS: BASO % 0.2 % (0.0-1.0); EOS % 0.4 % (1.0-4.0); LYMPH # 1.5 10*3/uL (1.3-4.4); MEAN CELL VOLUME 99.5 fl (81.0-99.0); MEAN CORPUSCULAR HGB 30.1 pg (27.0-31.0); MEAN CORPUSCULAR HGB CONC 30.2 g/dl (33.0-37.0); MEAN PLATELET VOLUME 9.3 fl (9.6-12.3); MONO # 0.6 10*3/uL (0.1-1.0); MONO % 10.4 % (3.0-9.0); NEUT # 3.3 10*3/uL (2.3-7.9); NEUT % 60.5 % (47.0-73.0); PLATELET COUNT AUTOMATED 183 10*3/uL (130-400); RED BLOOD COUNT 4.12 10*6/uL (4.10-5.10); RED CELL DISTRI WIDTH 14.3 % (0-14.5); WHITE BLOOD COUNT 5.5 10*3/uL (4.8-10.8)
== END 2022-01-26 15:16 | disposition home health service (06) | DRG 392 ==
LOC: ED 12:13 → 4E 16:01 → EDHOLD 16:01 → 4E 16:30
PROVIDERS: Internal Medicine; Physician Assistant; ADMIT Internal Medicine; ATTEND Internal Medicine
PROC: 0D738DZ Dilation of Lower Esophagus with Intraluminal Device, Via Natural or Artificial Opening Endoscopic (ICD-10-PCS; principal; 2022-01-26)
PROC: 0DB78ZX Excision of Stomach, Pylorus, Via Natural or Artificial Opening Endoscopic, Diagnostic (ICD-10-PCS; 2022-01-26)
DX: K21.00 Gastro-esophageal reflux disease with esophagitis, without bleeding (principal); A44.0 Systemic bartonellosis; F33.9 Major depressive disorder, recurrent, unspecified; K22.2 Esophageal obstruction; M19.90 Unspecified osteoarthritis, unspecified site; R13.10 Dysphagia, unspecified; Z20.822 Contact with and (suspected) exposure to COVID-19; Z66 Do not resuscitate; Z96.653 Presence of artificial knee joint, bilateral; R73.9 Hyperglycemia, unspecified; F41.9 Anxiety disorder, unspecified; K44.9 Diaphragmatic hernia without obstruction or gangrene; Z91.041 Radiographic dye allergy status; Z91.040 Latex allergy status; Z90.710 Acquired absence of both cervix and uterus; Z90.49 Acquired absence of other specified parts of digestive tract; Z80.42 Family history of malignant neoplasm of prostate; Z80.3 Family history of malignant neoplasm of breast; Z78.9 Other specified health status; Z98.890 Other specified postprocedural states

== ENCOUNTER → 2022-02-10 | Outpatient (CLI) | payer MEDICARE | END | disposition home or self-care (01) | LOC: CARD 09:00 | PROVIDERS: ATTEND Nurse Practitioner Family | DX: I35.8 Other nonrheumatic aortic valve disorders (principal); G45.9 Transient cerebral ischemic attack, unspecified; K22.2 Esophageal obstruction ==

== ENCOUNTER → 2022-03-10 | Outpatient (CLI) | payer MEDICARE | END | disposition home or self-care (01) | LOC: RAD 08:04 | PROVIDERS: ATTEND Nurse Practitioner Family | DX: M19.011 Primary osteoarthritis, right shoulder (principal) ==

== ENCOUNTER → 2022-06-01 | Outpatient (CLI) | payer MEDICARE | END | disposition home or self-care (01) | LOC: RAD 00:18 | PROVIDERS: ATTEND Nurse Practitioner Family | DX: S00.83XA Contusion of other part of head, initial encounter (principal); M25.841 Other specified joint disorders, right hand; F03.90 Unspecified dementia, unspecified severity, without behavioral disturbance, psychotic disturbance, mood disturbance, and anxiety; M25.741 Osteophyte, right hand; M19.031 Primary osteoarthritis, right wrist; M19.041 Primary osteoarthritis, right hand; R30.0 Dysuria; W19.XXXA Unspecified fall, initial encounter; Y93.89 Activity, other specified; Y92.89 Other specified places as the place of occurrence of the external cause; Y99.8 Other external cause status ==

== ENCOUNTER → 2022-06-05 | Day surgery (SDC) | payer MEDICARE ==
[~2022-06-05] VITALS: Ht 157.4 cm; Wt 74.4 kg
[2022-06-05 06:58] VITALS: BP 145/69
[2022-06-05 07:49] VITALS: BP 133/59
[2022-06-05 08:04] VITALS: BP 144/76
[2022-06-05 08:19] VITALS: BP 152/73
== END | disposition home or self-care (01) ==
LOC: SDC 06-01 00:09
PROVIDERS: ATTEND Surgery
DX: R13.10 Dysphagia, unspecified (principal); K22.2 Esophageal obstruction; F41.9 Anxiety disorder, unspecified; F32.9 Major depressive disorder, single episode, unspecified; E78.00 Pure hypercholesterolemia, unspecified; G47.00 Insomnia, unspecified; M19.90 Unspecified osteoarthritis, unspecified site; K21.9 Gastro-esophageal reflux disease without esophagitis; Z86.73 Personal history of transient ischemic attack (TIA), and cerebral infarction without residual deficits; Z79.899 Other long term (current) drug therapy

== ENCOUNTER → 2022-06-30 | Outpatient (CLI) | payer MEDICARE ==
[2022-06-30 10:32] LABS: BUN 11 mg/dl (9-23)
== END | disposition home or self-care (01) ==
LOC: CT 06-23 10:00
PROVIDERS: ATTEND Urology
DX: K80.20 Calculus of gallbladder without cholecystitis without obstruction (principal); Z90.710 Acquired absence of both cervix and uterus

== ENCOUNTER → 2022-09-06 | Outpatient (CLI) | payer MEDICARE | END | disposition home or self-care (01) | LOC: RAD 11:18 | PROVIDERS: ATTEND Nurse Practitioner Family | DX: R05.9 Cough, unspecified (principal); R06.02 Shortness of breath; J40 Bronchitis, not specified as acute or chronic ==

== ENCOUNTER → 2022-09-12 | Outpatient (CLI) | payer MEDICARE ==
[2022-09-12 10:25] LABS: HEMATOCRIT 45.5 % (37.0-47.0); MEAN CELL VOLUME 99.8 fl (81.0-99.0); MEAN CORPUSCULAR HGB 31.6 pg (27.0-31.0); MEAN CORPUSCULAR HGB CONC 31.6 g/dl (33.0-37.0); MEAN PLATELET VOLUME 8.8 fl (9.6-12.3); PLATELET COUNT AUTOMATED 296 10*3/uL (130-400); RED BLOOD COUNT 4.56 10*6/uL (4.10-5.10); RED CELL DISTRI WIDTH 13.9 % (0-14.5); WHITE BLOOD COUNT 10.8 10*3/uL (4.8-10.8)
[2022-09-12 10:41] LABS: ALKALINE PHOSPHATASE 98 U/L (46-116); BUN 15 mg/dl (9-23); CHLORIDE 106 mmol/L (98-107); CHOLESTEROL 132 mg/dL (<200); LDL CHOLESTEROL 55 mg/dL (9-159); POTASSIUM 3.8 mmol/L (3.4-5.1); SGPT/ALT 14 U/L (10-49); THYROID STIM HORMONE (HS) 4.329 uIU/ml (0.550-4.780); TOTAL PROTEIN 6.6 gm/dL (6.0-8.0); TRIGLYCERIDES 184 mg/dl (<150)
[2022-09-12 10:51] LABS: MANUAL DIFF REFLEX YES
[2022-09-12 11:10] LABS: PLATELET SUFFICIENCY NORMAL (NORMAL); TOTAL CELLS COUNTED 100 #CELLS
== END | disposition home or self-care (01) ==
LOC: LAB 00:29
PROVIDERS: ATTEND Nurse Practitioner Family
DX: E03.9 Hypothyroidism, unspecified (principal); I10 Essential (primary) hypertension; E78.9 Disorder of lipoprotein metabolism, unspecified; D50.9 Iron deficiency anemia, unspecified

== ENCOUNTER → 2022-12-27 | Outpatient (CLI) | payer MEDICARE ==
[2022-12-27 08:45] LABS: BASO % 0.1 % (0.0-1.0); HEMATOCRIT 47.6 % (37.0-47.0); LYMPH # 1.8 10*3/uL (1.3-4.4); MEAN CELL VOLUME 100.4 fl (81.0-99.0); MEAN CORPUSCULAR HGB 31.4 pg (27.0-31.0); MEAN CORPUSCULAR HGB CONC 31.3 g/dl (33.0-37.0); MEAN PLATELET VOLUME 9.1 fl (9.6-12.3); MONO # 0.5 10*3/uL (0.1-1.0); MONO % 6.7 % (3.0-9.0); NEUT # 4.9 10*3/uL (2.3-7.9); NEUT % 67.8 % (47.0-73.0); PLATELET COUNT AUTOMATED 237 10*3/uL (130-400); RED BLOOD COUNT 4.74 10*6/uL (4.10-5.10); WHITE BLOOD COUNT 7.2 10*3/uL (4.8-10.8)
[2022-12-27 09:35] LABS: ALKALINE PHOSPHATASE 108 U/L (46-116); BUN 15 mg/dl (9-23); CHLORIDE 107 mmol/L (98-107); CHOLESTEROL 128 mg/dL (<200); LDL CHOLESTEROL 51 mg/dL (9-159); POTASSIUM 4.1 mmol/L (3.4-5.1); SGPT/ALT 14 U/L (10-49); THYROID STIM HORMONE (HS) 4.599 uIU/ml (0.550-4.780); TRIGLYCERIDES 133 mg/dl (<150)
== END | disposition home or self-care (01) ==
LOC: LAB 08:21
PROVIDERS: ATTEND Nurse Practitioner Family
DX: E03.9 Hypothyroidism, unspecified (principal); D50.9 Iron deficiency anemia, unspecified

== ENCOUNTER → 2023-02-26 | Outpatient (CLI) | payer MEDICARE ==
[2023-02-26 09:26] LABS: EOS % 0.1 % (1.0-4.0); HEMATOCRIT 46.6 % (37.0-47.0); LYMPH # 2.4 10*3/uL (1.3-4.4); LYMPH % 32.2 % (27.0-41.0); MEAN CELL VOLUME 102.6 fl (81.0-99.0); MEAN CORPUSCULAR HGB 31.7 pg (27.0-31.0); MEAN CORPUSCULAR HGB CONC 30.9 g/dl (33.0-37.0); MEAN PLATELET VOLUME 9.8 fl (9.6-12.3); MONO # 0.7 10*3/uL (0.1-1.0); MONO % 9.3 % (3.0-9.0); NEUT # 4.2 10*3/uL (2.3-7.9); NEUT % 57.9 % (47.0-73.0); PLATELET COUNT AUTOMATED 260 10*3/uL (130-400); RED BLOOD COUNT 4.54 10*6/uL (4.10-5.10); RED CELL DISTRI WIDTH 13.9 % (0-14.5); WHITE BLOOD COUNT 7.3 10*3/uL (4.8-10.8)
[2023-02-26 10:14] LABS: ALKALINE PHOSPHATASE 98 U/L (46-116); BUN 12 mg/dl (9-23); CHLORIDE 104 mmol/L (98-107); SGPT/ALT 11 U/L (10-49); TOTAL PROTEIN 7.2 gm/dL (6.0-8.0)
== END | disposition home or self-care (01) ==
LOC: LAB 08:45
PROVIDERS: ATTEND Nurse Practitioner Family
DX: N30.01 Acute cystitis with hematuria (principal)

== ENCOUNTER → 2023-03-09 | Outpatient (CLI) | payer OTHER | END | disposition home or self-care (01) | LOC: US 03-02 09:30 | PROVIDERS: ATTEND Nurse Practitioner Family | DX: N26.1 Atrophy of kidney (terminal) (principal); N30.01 Acute cystitis with hematuria ==

== ENCOUNTER → 2023-03-23 | Outpatient (CLI) | payer MEDICARE ==
[2023-03-23 11:35] LABS: HEMATOCRIT 46.6 % (37.0-47.0); LYMPH # 1.7 10*3/uL (1.3-4.4); MEAN CELL VOLUME 104.7 fl (81.0-99.0); MEAN CORPUSCULAR HGB 32.1 pg (27.0-31.0); MEAN CORPUSCULAR HGB CONC 30.7 g/dl (33.0-37.0); MEAN PLATELET VOLUME 9.8 fl (9.6-12.3); MONO # 0.5 10*3/uL (0.1-1.0); MONO % 7.2 % (3.0-9.0); NEUT # 4.7 10*3/uL (2.3-7.9); NEUT % 67.5 % (47.0-73.0); PLATELET COUNT AUTOMATED 262 10*3/uL (130-400); RED BLOOD COUNT 4.45 10*6/uL (4.10-5.10); WHITE BLOOD COUNT 6.9 10*3/uL (4.8-10.8)
[2023-03-23 11:51] LABS: ALKALINE PHOSPHATASE 96 U/L (46-116); BUN 10 mg/dl (9-23); CHLORIDE 108 mmol/L (98-107); CHOLESTEROL 131 mg/dL (<200); LDL CHOLESTEROL 59 mg/dL (9-159); POTASSIUM 4.3 mmol/L (3.4-5.1); SGPT/ALT 7 U/L (10-49); TRIGLYCERIDES 112 mg/dl (<150)
== END | disposition home or self-care (01) ==
LOC: LAB 10:36
PROVIDERS: ATTEND Nurse Practitioner Family
DX: E03.9 Hypothyroidism, unspecified (principal); F03.90 Unspecified dementia, unspecified severity, without behavioral disturbance, psychotic disturbance, mood disturbance, and anxiety; E78.5 Hyperlipidemia, unspecified; I10 Essential (primary) hypertension

== ENCOUNTER 2023-05-17 20:20 | Emergency (ER) | payer MEDICARE ==
[~2023-05-17] VITALS: Ht 157.4 cm; Wt 72.6 kg
[2023-05-17] MEDS ORDERED: METHOCARBAMOL500 M1 PO (21:26)
[2023-05-17] MEDS ORDERED: NAPROXEN250 MG PO (21:26)
== END 2023-05-17 21:45 | disposition home or self-care (01) ==
LOC: ED 20:20
DX: S39.012A Strain of muscle, fascia and tendon of lower back, initial encounter (principal); M19.90 Unspecified osteoarthritis, unspecified site; K21.9 Gastro-esophageal reflux disease without esophagitis; E78.00 Pure hypercholesterolemia, unspecified; F41.9 Anxiety disorder, unspecified; F32.A Depression, unspecified; Z88.8 Allergy status to other drugs, medicaments and biological substances; Z91.040 Latex allergy status; Z91.041 Radiographic dye allergy status; Z96.653 Presence of artificial knee joint, bilateral; Z90.710 Acquired absence of both cervix and uterus; Z90.49 Acquired absence of other specified parts of digestive tract; Z98.890 Other specified postprocedural states; W01.0XXA Fall on same level from slipping, tripping and stumbling without subsequent striking against object, initial encounter; Y93.89 Activity, other specified; Y92.009 Unspecified place in unspecified non-institutional (private) residence as the place of occurrence of the external cause; Y99.8 Other external cause status

== ENCOUNTER → 2023-08-08 | Outpatient (CLI) | payer MEDICARE ==
[~2023-08-08] MED LIST changes: +METHOCARBAMOL500 M1 PO; +NAPROXEN250 MG PO
[2023-08-08 10:20] LABS: BASO % 0.2 % (0.0-1.0); EOS # 0.1 10*3/uL (0.0-0.4); EOS % 0.9 % (1.0-4.0); HEMATOCRIT 47.9 % (37.0-47.0); LYMPH # 2.4 10*3/uL (1.3-4.4); LYMPH % 36.9 % (27.0-41.0); MEAN CELL VOLUME 103.9 fl (81.0-99.0); MEAN CORPUSCULAR HGB 31.7 pg (27.0-31.0); MEAN CORPUSCULAR HGB CONC 30.5 g/dl (33.0-37.0); MEAN PLATELET VOLUME 9.4 fl (9.6-12.3); MONO # 0.4 10*3/uL (0.1-1.0); MONO % 6.6 % (3.0-9.0); NEUT # 3.6 10*3/uL (2.3-7.9); NEUT % 55.1 % (47.0-73.0); PLATELET COUNT AUTOMATED 210 10*3/uL (130-400); RED BLOOD COUNT 4.61 10*6/uL (4.10-5.10); RED CELL DISTRI WIDTH 13.5 % (0-14.5); WHITE BLOOD COUNT 6.6 10*3/uL (4.8-10.8)
[2023-08-08 10:46] LABS: ALKALINE PHOSPHATASE 87 U/L (46-116); BUN 10 mg/dl (9-23); CHLORIDE 111 mmol/L (98-107); CHOLESTEROL 129 mg/dL (<200); LDL CHOLESTEROL 61 mg/dL (9-159); POTASSIUM 3.6 mmol/L (3.4-5.1); SGPT/ALT 11 U/L (5-49); TOTAL PROTEIN 6.3 gm/dL (6.0-8.0); TRIGLYCERIDES 109 mg/dl (<150)
== END | disposition home or self-care (01) ==
LOC: LAB 09:40
PROVIDERS: ATTEND Nurse Practitioner Family
DX: E03.9 Hypothyroidism, unspecified (principal); F03.90 Unspecified dementia, unspecified severity, without behavioral disturbance, psychotic disturbance, mood disturbance, and anxiety; R73.9 Hyperglycemia, unspecified; K21.9 Gastro-esophageal reflux disease without esophagitis

== ENCOUNTER 2023-09-12 08:58 | Inpatient (IN) | payer MEDICARE ==
[~2023-09-12] VITALS: Ht 157.5 cm; Wt 70.3 kg
[2023-09-12 09:12] VITALS: BP 90/56
[2023-09-12] MEDS ORDERED: SODIUM CHLORIDE 0.9% 1,000 ML IV SCH (09:20)
[2023-09-12 09:51] LABS: EOS # 0.1 10*3/uL (0.0-0.4); EOS % 0.8 % (1.0-4.0); HEMATOCRIT 45.5 % (37.0-47.0); LYMPH # 1.5 10*3/uL (1.3-4.4); LYMPH % 24.1 % (27.0-41.0); MEAN CELL VOLUME 103.4 fl (81.0-99.0); MEAN CORPUSCULAR HGB 31.8 pg (27.0-31.0); MEAN CORPUSCULAR HGB CONC 30.8 g/dl (33.0-37.0); MEAN PLATELET VOLUME 9.6 fl (9.6-12.3); MONO # 0.5 10*3/uL (0.1-1.0); NEUT # 4.2 10*3/uL (2.3-7.9); NEUT % 66.6 % (47.0-73.0); PLATELET COUNT AUTOMATED 248 10*3/uL (130-400); RED CELL DISTRI WIDTH 13.6 % (0-14.5); WHITE BLOOD COUNT 6.3 10*3/uL (4.8-10.8)
[2023-09-12 10:01] LABS: ACT PARTIAL THROMBO TIME 31.5 SECONDS (20.0-32.1)
[2023-09-12 10:12] LABS: ALKALINE PHOSPHATASE 89 U/L (46-116); BUN 15 mg/dl (9-23); CHLORIDE 106 mmol/L (98-107); LIPASE 33 U/L (12-53); POTASSIUM 4.2 mmol/L (3.4-5.1); SGPT/ALT 7 U/L (5-49); TOTAL PROTEIN 6.7 gm/dL (6.0-8.0)
[2023-09-12 10:18] VITALS: BP 130/75
[2023-09-12 11:15] LABS: BILIRUBIN Negative (Negative); BLOOD Negative (Negative); CLARITY Turbid (Clear); COLOR Yellow (Yellow); GLUCOSE Negative (Negative); KETONE Trace (Negative); LEUKO ESTERASE 3+ (Negative); NITRITE Negative (Negative); PH 5.5 (4.5-8.0); SPECIFIC GRAVITY 1.025 (1.001-1.030)
[2023-09-12 11:31] LABS: WBC TNTC wbc/hpf (0-5)
[2023-09-12 11:32] LABS: BACTERIA 4+
[2023-09-12] MEDS ORDERED: Ceftriaxone Sodium 1 GM/10 ML SYR IV ONE (11:45)
[2023-09-12] MEDS ORDERED: SODIUM CHLORIDE 0.9% 1,000 ML IV ONE ×2 (12:03→13:30)
[2023-09-12] MEDS ORDERED: Magnesium Hydroxide 30 ML UDC PO PRN (12:20)
[2023-09-12] MEDS ORDERED: BISACODYL 5 MG TAB PO PRN (12:20)
[2023-09-12] MEDS ORDERED: Ondansetron Hydrochloride 4 MG/2 ML VIAL IV PRN (12:20)
[2023-09-12] MEDS ORDERED: ACETAMINOPHEN 325 MG TAB PO PRN (12:20)
[2023-09-12] MEDS ORDERED: Acetaminophen/Hydrocodone 5 MG/325 MG TABLET PO PRN (12:20)
[2023-09-12] MEDS ORDERED: TEMAZEPAM 15 MG CAP PO PRN (12:20)
[2023-09-12 13:15] VITALS: BP 144/76
[2023-09-12 14:50] VITALS: BP 153/70
[2023-09-12 20:00] VITALS: BP 120/54
[2023-09-12] MEDS ORDERED: Amitriptyline Hydrochloride 50 MG TAB PO SCH (22:00)
[2023-09-12] MEDS ORDERED: Donepezil Hydrochloride 5 MG TAB PO SCH (22:00)
[2023-09-13] VITALS: BP 122/69
[2023-09-13] MEDS ORDERED: Levothyroxine Sodium 100 MCG TAB PO SCH (06:00)
[2023-09-13 06:11] LABS: ALKALINE PHOSPHATASE 75 U/L (46-116); BUN 9 mg/dl (9-23); CHLORIDE 111 mmol/L (98-107); POTASSIUM 3.8 mmol/L (3.4-5.1); SGPT/ALT 7 U/L (5-49); TOTAL PROTEIN 5.6 gm/dL (6.0-8.0)
[2023-09-13 06:28] LABS: EOS # 0.1 10*3/uL (0.0-0.4); EOS % 2.1 % (1.0-4.0); HEMATOCRIT 41.7 % (37.0-47.0); LYMPH # 2.3 10*3/uL (1.3-4.4); LYMPH % 36.8 % (27.0-41.0); MEAN CELL VOLUME 104.3 fl (81.0-99.0); MEAN CORPUSCULAR HGB 31.5 pg (27.0-31.0); MEAN CORPUSCULAR HGB CONC 30.2 g/dl (33.0-37.0); MEAN PLATELET VOLUME 10.3 fl (9.6-12.3); MONO # 0.5 10*3/uL (0.1-1.0); MONO % 8.4 % (3.0-9.0); NEUT # 3.3 10*3/uL (2.3-7.9); NEUT % 52.2 % (47.0-73.0); PLATELET COUNT AUTOMATED 213 10*3/uL (130-400); RED CELL DISTRI WIDTH 13.7 % (0-14.5); WHITE BLOOD COUNT 6.2 10*3/uL (4.8-10.8)
[2023-09-13 08:00] VITALS: BP 134/64
[2023-09-13] MEDS ORDERED: Ceftriaxone Sodium 1 GM in SYRINGE INFUSION 10 ML IV SCH (10:00)
[2023-09-13] MEDS ORDERED: Enoxaparin Sodium 40 MG/0.4 ML SYR SC SCH (10:00)
[2023-09-13] MEDS ORDERED: ATORVASTATIN CALCIUM 80 MG TAB PO SCH (10:00)
[2023-09-13] MEDS ORDERED: Pantoprazole Sodium 40 MG TAB PO SCH (10:00)
[2023-09-13] MEDS ORDERED: Duloxetine Hydrochloride 30 MG CAP PO SCH (10:00)
[2023-09-13 12:00] VITALS: BP 143/65
[2023-09-13 16:00] VITALS: BP 139/69
[2023-09-13] MEDS ORDERED: MYRBETRIQ25 M1 PO (16:24)
[2023-09-13 20:00] VITALS: BP 108/78
[2023-09-14] VITALS: BP 105/41
[2023-09-14] MEDS ORDERED: Pantoprazole Sodium 40 MG TAB PO SCH (06:00)
[2023-09-14 06:47] LABS: BASO % 0.2 % (0.0-1.0); EOS # 0.1 10*3/uL (0.0-0.4); EOS % 1.7 % (1.0-4.0); HEMATOCRIT 44.8 % (37.0-47.0); LYMPH % 33.9 % (27.0-41.0); MEAN CELL VOLUME 105.2 fl (81.0-99.0); MEAN CORPUSCULAR HGB CONC 29.5 g/dl (33.0-37.0); MEAN PLATELET VOLUME 9.5 fl (9.6-12.3); MONO # 0.6 10*3/uL (0.1-1.0); MONO % 9.3 % (3.0-9.0); NEUT # 3.3 10*3/uL (2.3-7.9); NEUT % 54.4 % (47.0-73.0); PLATELET COUNT AUTOMATED 205 10*3/uL (130-400); RED BLOOD COUNT 4.26 10*6/uL (4.10-5.10); RED CELL DISTRI WIDTH 13.3 % (0-14.5)
[2023-09-14 07:10] LABS: BUN 5 mg/dl (9-23); CHLORIDE 110 mmol/L (98-107); POTASSIUM 3.7 mmol/L (3.4-5.1)
[2023-09-14 07:33] VITALS: BP 147/76
[2023-09-14 11:26] VITALS: BP 151/68
[2023-09-14 16:00] VITALS: BP 135/43
[2023-09-14 20:00] VITALS: BP 123/55
[2023-09-15] VITALS: BP 139/63
[2023-09-15 07:21] LABS: EOS # 0.2 10*3/uL (0.0-0.4); EOS % 2.9 % (1.0-4.0); HEMATOCRIT 43.9 % (37.0-47.0); LYMPH # 1.7 10*3/uL (1.3-4.4); LYMPH % 29.2 % (27.0-41.0); MEAN CELL VOLUME 102.6 fl (81.0-99.0); MEAN CORPUSCULAR HGB 31.5 pg (27.0-31.0); MEAN CORPUSCULAR HGB CONC 30.8 g/dl (33.0-37.0); MEAN PLATELET VOLUME 9.3 fl (9.6-12.3); MONO # 0.5 10*3/uL (0.1-1.0); MONO % 8.3 % (3.0-9.0); NEUT # 3.5 10*3/uL (2.3-7.9); NEUT % 59.3 % (47.0-73.0); PLATELET COUNT AUTOMATED 206 10*3/uL (130-400); RED BLOOD COUNT 4.28 10*6/uL (4.10-5.10); RED CELL DISTRI WIDTH 13.1 % (0-14.5); WHITE BLOOD COUNT 5.9 10*3/uL (4.8-10.8)
[2023-09-15 07:49] LABS: BUN 6 mg/dl (9-23); CHLORIDE 109 mmol/L (98-107)
[2023-09-15 08:18] VITALS: BP 151/74
[2023-09-15 12:00] VITALS: BP 146/78
[2023-09-15 16:32] VITALS: BP 150/84
[2023-09-15 20:00] VITALS: BP 142/73
[2023-09-16] VITALS: BP 118/85
[2023-09-16 07:08] LABS: EOS # 0.2 10*3/uL (0.0-0.4); EOS % 2.8 % (1.0-4.0); LYMPH # 2.1 10*3/uL (1.3-4.4); LYMPH % 40.1 % (27.0-41.0); MEAN CELL VOLUME 100.9 fl (81.0-99.0); MEAN CORPUSCULAR HGB 31.4 pg (27.0-31.0); MEAN CORPUSCULAR HGB CONC 31.1 g/dl (33.0-37.0); MEAN PLATELET VOLUME 9.4 fl (9.6-12.3); MONO # 0.5 10*3/uL (0.1-1.0); NEUT # 2.5 10*3/uL (2.3-7.9); NEUT % 46.7 % (47.0-73.0); PLATELET COUNT AUTOMATED 210 10*3/uL (130-400); RED BLOOD COUNT 4.36 10*6/uL (4.10-5.10); RED CELL DISTRI WIDTH 13.2 % (0-14.5); WHITE BLOOD COUNT 5.3 10*3/uL (4.8-10.8)
[2023-09-16 07:36] LABS: BUN 7 mg/dl (9-23); CHLORIDE 107 mmol/L (98-107); POTASSIUM 3.8 mmol/L (3.4-5.1)
[2023-09-16 08:03] VITALS: BP 136/78
[2023-09-16] MEDS ORDERED: Ceftriaxone Sodium 1 GM in SYRINGE INFUSION 10 ML IV SCH (10:00)
[2023-09-16] MEDS ORDERED: CEPHALEXIN 500 MG CAP PO SCH (10:45)
[2023-09-16 12:00] VITALS: BP 132/62
[2023-09-16 17:02] VITALS: BP 145/74
[2023-09-16 20:00] VITALS: BP 127/73
[2023-09-17] VITALS: BP 128/59
[2023-09-17 08:00] VITALS: BP 139/72
[2023-09-17 11:27] VITALS: BP 134/67
[2023-09-17 16:00] VITALS: BP 128/61
[2023-09-17 20:00] VITALS: BP 127/59
[2023-09-18] VITALS: BP 125/66
[2023-09-18 08:00] VITALS: BP 130/64
== END 2023-09-18 12:39 | disposition home health service (06) | DRG 71 ==
LOC: ED 08:58 → 5E 11:47 → EDHOLD 11:47 → 5E 13:31
PROVIDERS: Emergency Medicine; Internal Medicine; Student in an Organized Health Care Education/Training Program; ADMIT Internal Medicine; ATTEND Internal Medicine
DX: G93.41 Metabolic encephalopathy (principal); N30.00 Acute cystitis without hematuria; Z66 Do not resuscitate; E86.0 Dehydration; F32.9 Major depressive disorder, single episode, unspecified; F41.9 Anxiety disorder, unspecified; R29.6 Repeated falls; K21.9 Gastro-esophageal reflux disease without esophagitis; Z96.653 Presence of artificial knee joint, bilateral; K22.2 Esophageal obstruction; M15.9 Polyosteoarthritis, unspecified; R13.19 Other dysphagia; Z90.710 Acquired absence of both cervix and uterus; Z80.42 Family history of malignant neoplasm of prostate; Z80.3 Family history of malignant neoplasm of breast; Z91.041 Radiographic dye allergy status; Z91.040 Latex allergy status; Z91.09 Other allergy status, other than to drugs and biological substances; Z79.899 Other long term (current) drug therapy

== ENCOUNTER → 2023-11-07 | Outpatient (CLI) | payer MEDICARE ==
[~2023-11-07] MED LIST changes: +MYRBETRIQ25 M1 PO
[2023-11-07 10:32] LABS: BASO % 0.2 % (0.0-1.0); EOS # 0.1 10*3/uL (0.0-0.4); EOS % 0.8 % (1.0-4.0); HEMATOCRIT 47.1 % (37.0-47.0); LYMPH # 2.1 10*3/uL (1.3-4.4); LYMPH % 31.5 % (27.0-41.0); MEAN CELL VOLUME 102.4 fl (81.0-99.0); MEAN CORPUSCULAR HGB 31.3 pg (27.0-31.0); MEAN CORPUSCULAR HGB CONC 30.6 g/dl (33.0-37.0); MEAN PLATELET VOLUME 9.1 fl (9.6-12.3); MONO # 0.5 10*3/uL (0.1-1.0); MONO % 7.4 % (3.0-9.0); NEUT # 3.9 10*3/uL (2.3-7.9); NEUT % 59.5 % (47.0-73.0); PLATELET COUNT AUTOMATED 227 10*3/uL (130-400); RED CELL DISTRI WIDTH 12.9 % (0-14.5); WHITE BLOOD COUNT 6.5 10*3/uL (4.8-10.8)
[2023-11-07 12:17] LABS: ALKALINE PHOSPHATASE 81 U/L (46-116); BUN 10 mg/dl (9-23); CHLORIDE 106 mmol/L (98-107); CHOLESTEROL 172 mg/dL (<200); LDL CHOLESTEROL 96 mg/dL (9-159); POTASSIUM 4.3 mmol/L (3.4-5.1); SGPT/ALT < 7 U/L (5-49); TOTAL PROTEIN 6.8 gm/dL (6.0-8.0); TRIGLYCERIDES 133 mg/dl (<150)
== END | disposition home or self-care (01) ==
LOC: LAB 10:14
PROVIDERS: ATTEND Nurse Practitioner Family
DX: E03.9 Hypothyroidism, unspecified (principal); F03.90 Unspecified dementia, unspecified severity, without behavioral disturbance, psychotic disturbance, mood disturbance, and anxiety; R73.9 Hyperglycemia, unspecified; I10 Essential (primary) hypertension; E78.5 Hyperlipidemia, unspecified; R26.81 Unsteadiness on feet; Z91.81 History of falling

== ENCOUNTER → 2023-11-27 | Outpatient (CLI) | payer MEDICARE | LOC: RAD 09:27 | PROVIDERS: ATTEND Nurse Practitioner Family | DX: M19.012 Primary osteoarthritis, left shoulder (principal); M79.631 Pain in right forearm; M25.512 Pain in left shoulder; Z91.81 History of falling ==

== ENCOUNTER 2024-01-03 14:30 | Emergency (ER) | payer MEDICARE ==
[~2024-01-03] VITALS: Ht 157.4 cm; Wt 66.7 kg
[2024-01-03] MEDS ORDERED: Tdap Vaccine 0.5 ML SYR (Adult Vaccine) IM ONE (15:30)
== END 2024-01-03 17:33 | disposition home or self-care (01) ==
LOC: ED 14:30
DX: S00.01XA Abrasion of scalp, initial encounter (principal); K21.9 Gastro-esophageal reflux disease without esophagitis; F41.9 Anxiety disorder, unspecified; F32.A Depression, unspecified; M19.90 Unspecified osteoarthritis, unspecified site; E78.00 Pure hypercholesterolemia, unspecified; Z86.73 Personal history of transient ischemic attack (TIA), and cerebral infarction without residual deficits; Z91.040 Latex allergy status; Z91.041 Radiographic dye allergy status; Z88.8 Allergy status to other drugs, medicaments and biological substances; Z96.653 Presence of artificial knee joint, bilateral; Z98.890 Other specified postprocedural states; Z90.710 Acquired absence of both cervix and uterus; Z90.49 Acquired absence of other specified parts of digestive tract; W01.198A Fall on same level from slipping, tripping and stumbling with subsequent striking against other object, initial encounter; Y93.89 Activity, other specified; Y92.89 Other specified places as the place of occurrence of the external cause; Y99.8 Other external cause status

== ENCOUNTER → 2024-02-28 | Outpatient (CLI) | payer MEDICARE ==
[2024-02-28 10:02] LABS: BASO % 0.1 % (0.0-1.0); EOS # 0.1 10*3/uL (0.0-0.4); EOS % 1.7 % (1.0-4.0); HEMATOCRIT 47.2 % (37.0-47.0); LYMPH # 2.3 10*3/uL (1.3-4.4); LYMPH % 32.5 % (27.0-41.0); MEAN CELL VOLUME 101.7 fl (81.0-99.0); MEAN CORPUSCULAR HGB CONC 32.4 g/dl (33.0-37.0); MEAN PLATELET VOLUME 9.2 fl (9.6-12.3); MONO # 0.6 10*3/uL (0.1-1.0); NEUT % 57.4 % (47.0-73.0); PLATELET COUNT AUTOMATED 211 10*3/uL (130-400); RED BLOOD COUNT 4.64 10*6/uL (4.10-5.10); RED CELL DISTRI WIDTH 12.9 % (0-14.5)
[2024-02-28 10:43] LABS: ALKALINE PHOSPHATASE 85 U/L (46-116); BUN 11 mg/dl (9-23); CHLORIDE 108 mmol/L (98-107); CHOLESTEROL 124 mg/dL (<200); LDL CHOLESTEROL 54 mg/dL (9-159); POTASSIUM 3.9 mmol/L (3.4-5.1); SGPT/ALT 13 U/L (5-49); TOTAL PROTEIN 6.8 gm/dL (6.0-8.0); TRIGLYCERIDES 117 mg/dl (<150)
== END | disposition home or self-care (01) ==
LOC: LAB 09:45
PROVIDERS: ATTEND Nurse Practitioner Family
DX: I10 Essential (primary) hypertension (principal); E03.9 Hypothyroidism, unspecified; F03.90 Unspecified dementia, unspecified severity, without behavioral disturbance, psychotic disturbance, mood disturbance, and anxiety; K21.9 Gastro-esophageal reflux disease without esophagitis